=== PATIENT | female | born 1965 | race Caucasian/White ===

== ENCOUNTER 2017-08-01 19:42 | Emergency (ER) | payer OTHER ==
[2017-08-01 21:51] LABS: HEMOGLOBIN 14.3 gm/dl (12.3-15.3); RED BLOOD COUNT 4.61 M/UL (4.00-5.10); WHITE BLOOD COUNT 7.8 K/UL (4.5-11.0)
[2017-08-01 22:10] LABS: BUN/CREATININE RATIO 21 (0-10)
== END 2017-08-01 23:32 | disposition home or self-care (01) ==
LOC: ER1 19:42
PROVIDERS: Family Medicine
DX: K62.5 Hemorrhage of anus and rectum (principal); E11.9 Type 2 diabetes mellitus without complications; F17.200 Nicotine dependence, unspecified, uncomplicated
CPT/HCPCS: 36415; 80053; 81001; 82272; 83690; 85025; 99284